=== PATIENT | female | born 1985 | race Caucasian/White ===

== ENCOUNTER 2018-08-14 08:29 | Emergency (ER) | payer OTHER, MEDICAID ==
[2018-08-14] MEDS: IBUPROFEN 800 MG TAB PO (09:07)
== END 2018-08-14 10:13 | disposition home or self-care (01) ==
LOC: FTE 08:29
DX: H69.90 Unspecified Eustachian tube disorder, unspecified ear (principal)
CPT/HCPCS: 72040; 99283-25